=== PATIENT | male | born 1955 | race Caucasian/White ===

== ENCOUNTER 2020-03-05 10:22 | Day surgery (SDC) | payer MEDICARE, OTHER ==
[~2020-03-05 10:22] MED LIST: Lactated Ringers 1,000 ML IV SCH
[2020-03-05] MEDS ORDERED: Lidocaine 2% 5 ML SDV ONE (11:11)
[2020-03-05] MEDS ORDERED: Propofol 200 MG/20 ML SDV ONE ×2 (11:11→13:32)
[2020-03-05] MEDS ORDERED: fentaNYL 100 MCG/2 ML SDV ONE (13:34)
--- NOTE | 2020-03-05 13:37 | PCM.PREANE ---
Preanesthetic Assessment - Anesthesia/Transfusion/Family Hx Anesthesia History: Prior Anesthesia Without Reaction Family History of Anesthesia Reaction: No Transfusion History: No Prior Transfusion(s) Intubation History: Unknown - Review of Systems General: No Symptoms Pulmonary: Hemoptysis Cardiovascular: No Symptoms Gastrointestinal: No Symptoms, Other (screening, 11 years ago was normal) Neurological: No Symptoms Other: Reports: None - Physical Assessment Vital Signs: Last Vital Signs Temp 36 C L 03/05/20 10:40 Pulse 65 03/05/20 10:40 Resp 14 03/05/20 10:40 BP 141/77 H 03/05/20 10:40 Pulse Ox 96 03/05/20 10:40 Height: 6 ft 3 in Weight: 110.677 kg ASA Class: 2 Mental Status: Alert & Oriented x3 Airway Class: Mallampati = 2 Dentition: Reports: Normal Dentition, [place](s) (right and left lower (back)) Thyro-Mental Finger Breadths: 3 Mouth Opening Finger Breadths: 3 ROM/Head Extension: Full Lungs: Clear to Auscultation, Normal Respiratory Effort Cardiovascular: Regular Rate, Regular Rhythm - Allergies Allergies/Adverse Reactions: Allergies Allergy/AdvReac Type Severity Reaction Status Date / Time No Known Allergies Allergy Verified 03/05/20 11:12 - Blood Blood Available: No - Anesthesia Plan Pre-Op Medication Ordered: None - Acknowledgements Anesthesia Type Planned: MAC Pt an Appropriate Candidate for the Planned Anesthesia: Yes Alternatives and Risks of Anesthesia Discussed w Pt/Guardian: Yes Pt/Guardian Understands and Agrees with Anesthesia Plan: Yes PreAnesthesia Questionnaire Cardiovascular History: Reports: Hypertension Gastrointestinal History: Reports: GERD Genitourinary History: Reports: BPH Musculoskeletal History: Reports: Back Pain, Chronic, Fracture Other Musculoskeletal History: hx of fx lower leg and foot Endocrine/Metabolic History: Reports: Obesity/BMI 30+ (BMI 30.5) - Past Surgical History Head Surgeries/Procedures: Reports: None HEENT Surgical History: Reports: Other (See Below) (closure of nose laceration) GI Surgical History: Reports: Colonoscopy (11 years ago) Male Surgical History: Reports: Vasectomy, Other (See Below) Other Male Surgeries/Procedures: reversal of Vasectomy Musculoskeletal Surgical History: Reports: Other (See Below) Other Musculoskeletal Surgeries/Procedures:: reattachment of amputated finger - SUBSTANCE USE Smoking Status *Q: Former Smoker Tobacco Use Within Last Twelve Months: No Recreational Drug Use History: No - HOME MEDS Home Medications: Home Meds Lisinopril/Hydrochlorothiazide [Lisinopril-Hctz 10-12.5 mg Tab] 1 tab PO DAILY 03/02/20 [History] Omeprazole Magnesium [Prilosec Otc] 20 mg PO DAILY 03/02/20 [History] - CURRENT (IN HOUSE) MEDS Current Meds: Current Medications Lactated Ringer's (Ringers, Lactated) 1,000 mls @ 125 mls/hr IV ASD[facility]RECTED [facility] Last Admin: 03/05/20 11:11 Dose: 125 mls/hr Documented by: Discontinued Medications Lidocaine (Xylocaine-Mpf 2%) Confirm Administered Dose 5 ml .ROUTE .STK-MED ONE Stop: 03/05/20 11:12 Propofol (Diprivan 20 Ml) Confirm Administered Dose 400 mg .ROUTE .STK-MED ONE Stop: 03/05/20 11:12
[2020-03-05] MEDS ORDERED: ePHEDrine 50 MG/ML SDV ONE (13:42)
--- NOTE | 2020-03-05 14:14 | PCM.OPNOTE ---
- General Post-Op/Procedure Note Date of Surgery/Procedure: 03/05/20 Operative Procedure(s): egd w bx. colonoscopy w snare Findings: see [id number] Pre Op Diagnosis: gerd and scrn colonoscopy Post-Op Diagnosis: Same Anesthesia Technique: Moderate Sedation Primary Surgeon: Jose Bourgeois Complications: None Condition: Good
--- NOTE | 2020-03-05 15:15 | PCM48HPAN ---
Post Anesthesia Note - EVALUATION WITHIN 48HRS OF ANESTHETIC Vital Signs in Normal Range: Yes Patient Participated in Evaluation: Yes Respiratory Function Stable: Yes Airway Patent: Yes Cardiovascular Function Stable: Yes Hydration Status Stable: Yes Pain Control Satisfactory: Yes Nausea and Vomiting Control Satisfactory: Yes Mental Status Recovered: Yes Vital Signs: Last Vital Signs Temp 36.1 C 03/05/20 14:24 Pulse 71 03/05/20 14:24 Resp 14 03/05/20 14:24 BP 117/70 03/05/20 14:24 Pulse Ox 95 03/05/20 14:24
--- NOTE | 2020-03-05 15:15 | PCM.POSTAN ---
POST ANESTHESIA ASSESSMENT - VITAL SIGNS Vital Signs: Last Vital Signs Temp 36.1 C 03/05/20 14:24 Pulse 71 03/05/20 14:24 Resp 14 03/05/20 14:24 BP 117/70 03/05/20 14:24 Pulse Ox 95 03/05/20 14:24 - RESPIRATORY Respiratory Status: Respiratory Rate WNL - CARDIOVASCULAR CV Status: Pulse Rate WNL - GASTROINTESTINAL GI Status: No Symptoms - POST OP HYDRATION Hydration Status: Adequate & Stable
--- NOTE | 2020-03-05 17:00 | OR ---
SURGEON: Jose Bourgeois MD DATE OF PROCEDURE: 03/05/2020 PREOPERATIVE DIAGNOSES: Gastroesophageal reflux disease and screening colonoscopy. POSTOPERATIVE DIAGNOSES: Gastroesophageal reflux disease and screening colonoscopy. PROCEDURES PERFORMED: 1. Esophagogastroduodenoscopy with biopsy. 2. Colonoscopy with snare polypectomy. PRIMARY SURGEON: Jose Bourgeois MD COMPLICATIONS: None. FINDINGS: EGD findings: 1. The patient is easily sedated with VIROLOGIST and Diprivan, the patient is soundly snoring. 2. Proximal esophagus is free of disease, stricture, inflammation. Distal esophagus at GE junction 40 shows a flame-like structure and a pretty long segment, concerned about Garcia esophagitis. Biopsy was done. Stomach rugae are normal in appearance. Antrum looks fine. Duodenum bulb has two small polyps about the size of 3 mm each, two of them, and biopsied one. From the duodenum bulb, down to duodenum second portion is grossly normal in appearance. Scope retrieved back to look at the fundus of the stomach, there is no hiatal hernia. Biopsy done at the duodenal bulb polyp number one and biopsy done at antrum, biopsy done at body, and biopsy done at GE junction at 40 with two of them. Then sucked out the gas while scope pulling out. During the whole study, there is no food, bile, ulcer, blood observed. Colonoscopy findings: 1. The patient is easily sedated with VIROLOGIST and Diprivan, the patient is soundly snoring. 2. Bowel prep is left to be desirable. The bowel prep itself I have to say is not bad, however, there are lot of opaque semi-formed stools sticking to the mucosal wall which cannot be irrigated. Despite no matter how hard, this just cannot be displayed. Whatever the food, diet the patient eating and the stools stick to wall. Irrigated copiously, still cannot get rid of a lot of them. So a very small polyp could be hidden below the liquid stool. Also two pieces of solid carrot compromised the study, although it can be pushed away. Colon rather straightforward. Cecum indicated by ileocecal fold, one-to-one indentation, and appendiceal orifice. Light emittance is not observed. ScopeGuide is pointing south. Mucosa examined upon scope pulling out. At distance 55, there is a pedunculated polyp, about 5 mm, was snared and captured. Then, at distance 25, there is a sessile polyp, 4 mm, was removed with biopsy forceps. The patient had diverticulosis on the right side and on the transverse colon, nothing on the left side. No signs or symptoms of diverticulitis. No inflammation, stricture, ulceration, AV malformation, bleeding, none of those observed. The patient has mild external hemorrhoids and mild internal hemorrhoids. The patient would benefit from repeat colonoscopy or repeat EGD depending on the biopsy or the pathology of the removed polyp. NANCY / MAR /[id number]
== END 2020-03-05 15:15 | disposition home or self-care (01) ==
LOC: MW.SDS 10:22
PROVIDERS: ATTEND Surgery
DX: Z12.11 Encounter for screening for malignant neoplasm of colon (principal); D12.6 Benign neoplasm of colon, unspecified; K64.4 Residual hemorrhoidal skin tags; K64.8 Other hemorrhoids; K29.50 Unspecified chronic gastritis without bleeding; K21.0 Gastro-esophageal reflux disease with esophagitis; K57.30 Diverticulosis of large intestine without perforation or abscess without bleeding; K31.7 Polyp of stomach and duodenum; Q40.2 Other specified congenital malformations of stomach; I10 Essential (primary) hypertension; E66.9 Obesity, unspecified; Z68.30 Body mass index [BMI] 30.0-30.9, adult; Z87.891 Personal history of nicotine dependence; Z79.899 Other long term (current) drug therapy
CPT/HCPCS: 43239; 45380; 45385; 88305; 88312; J2001; J2704; J3010; J7120